=== PATIENT | male | born 1970 | race Caucasian/White ===

== ENCOUNTER 2016-11-13 07:16 | Day surgery (SDC) | payer OTHER ==
[2016-11-13 07:55] VITALS: BMI 26.6
[2016-11-13] MEDS ORDERED: Lidocaine Hydrochloride 5 ML INJ ONE (08:46)
[2016-11-13] MEDS ORDERED: Propofol 10 mg/ml Inj (20 ML) ONE (08:46)
--- NOTE | 2016-11-13 08:48 | CP.SDSHP ---
Same Day Surgery H & P - History Proposed Procedure: EGD Pre-Op Diagnosis: SEE NOTES - Previous Medical/Surgical History Neuro: Other Misc: Other Pain: 4.Moderate Pain - Allergies Allergies: Allergies No Known Allergies Allergy (Verified 11/13/16 07:53) - Physical Exam General Appearance: N Vital Signs: Vital Signs 11/13/16 11/13/16 07:56 08:36 Temperature 97.8 F 97.8 F Pulse Rate 65 65 Respiratory 19 19 Rate Blood Pressure 128/68 128/68 O2 Sat by Pulse 98 100 Oximetry Mental Status: Alert & Oriented x3 Neuro: WNL Heart: WNL Lungs: WNL GI: Other - {Optional Preform as Required} Breast: WNL Abdomen: Other Rectal: WNL Integument: WNL : WNL Ortho: Other ENT: WNL - Impression Pt. Evaluated Today:Candidate for Anesthesia & Procedure: Yes - Date & Time Time: 08:48 Short Stay Discharge - Short Stay Discharge Admitting Diagnosis/Reason for Visit: DYSPEPSIA Disposition: HOME/ ROUTINE
[2016-11-13] MEDS ORDERED: Belladonna-Phenobarbital PO ONE (09:00)
[2016-11-13 10:41] VITALS: TEMP 97.3
[2016-11-13 10:48] VITALS: BP 96/60; PULSE 73; RESP 14; O2SAT 97
== END 2016-11-13 10:00 | disposition home or self-care (01) ==
LOC: C.ENDO 07:16
PROVIDERS: ATTEND Specialist
DX: K20.9 Esophagitis, unspecified (principal); K44.9 Diaphragmatic hernia without obstruction or gangrene; K29.50 Unspecified chronic gastritis without bleeding
CPT/HCPCS: 43239; 88305; J2704

== ENCOUNTER 2016-12-21 03:20 | Emergency (ER) | payer OTHER ==
[2016-12-21 03:21] VITALS: BMI 26.6
[2016-12-21 03:34] VITALS: RESP 16
[2016-12-21] MEDS ORDERED: Sodium Chloride 0.9% 1,000 ML IV ONE (03:59)
[2016-12-21 04:12] LABS: BASO # 0.1 K/uL (0.0-0.2); BASO % 0.5 % (0.0-2.0); EOS # 0.1 K/uL (0.0-0.7); HEMATOCRIT 42.1 % (35.0-51.0); LYMPH # 2.8 K/uL (1.0-4.3); LYMPH % 24.6 % (20.0-40.0); MEAN CELL VOLUME 82.5 fL (80.0-94.0); MEAN CORPUSCULAR HEMOGLOBIN 27.1 pg (27.0-31.0); MEAN CORPUSCULAR HGB CONC 32.9 g/dL (33.0-37.0); MEAN PLATELET VOLUME 8.4 fL (7.2-11.7); MONO # 0.8 K/uL (0.0-0.8); MONO % 6.9 % (0.0-10.0); RED CELL DISTRIBUTION WIDTH 15.2 % (11.5-14.5); WHITE BLOOD COUNT 11.3 K/uL (4.8-10.8)
[2016-12-21 04:23] LABS: ALB/GLOB RATIO 1.1 (1.0-2.1); ALKALINE PHOSPHATASE 71 U/L (38-126); ALT/SGPT 31 U/L (21-72); AST/SGOT 25 U/L (17-59); BILIRUBIN,TOTAL 0.4 mg/dL (0.2-1.3); BLOOD UREA NITROGEN 12 mg/dL (9-20); CALCIUM 9.3 mg/dl (8.6-10.4); CARBON DIOXIDE 26 mmol/L (22-30); CHLORIDE 104 mmol/L (98-107); GFR AFRICAN-AMERICAN > 60; GLUCOSE,RANDOM 122 mg/dL (75-110); SODIUM 144 mmol/L (132-148); TOTAL PROTEIN 8.2 g/dL (6.3-8.3)
[2016-12-21] MEDS ORDERED: Morphine 4 MG/ML VIAL IV ONE ×2 (04:23→04:39)
[2016-12-21] MEDS ORDERED: Aluminum Hydroxide/Magnesium Hydroxide Susp (30 mL) ONE (04:57)
[2016-12-21] MEDS ORDERED: Aluminum Hydroxide/Magnesium Hydroxide Susp (30 mL) PO STA (04:57)
[2016-12-21] MEDS ORDERED: Iodixanol 320 MG/ML 100 ML BOTTLE IV ONE (05:13)
--- NOTE | 2016-12-21 05:39 | C.PDOC ---
History Of Present Illness 46 year old male with a Hx of gastritis/GERD on PO protonix, cerafate, and reglan who presents to the ER after experiencing intermittent epigastric pain since last night that worsened today. Pain is non radiating. Patient reports the pain is associated with several episodes of vomiting. Patient denies radiation of the pain, urinary symptoms, fever, or chest pain. Time Seen by Provider: 12/21/16 03:43 Chief Complaint (Nursing): Abdominal Pain History Per: Patient History/Exam Limitations: no limitations Onset/Duration Of Symptoms: Days, Intermittent Episodes Current Symptoms Are (Timing): Still Present Location Of Pain/Discomfort: Epigastric Radiation Of Pain To:: None Quality Of Discomfort: Unable To Describe Associated Symptoms: Vomiting. denies: Fever, Chest Pain, Urinary Symptoms Exacerbating Factors: None Alleviating Factors: None Recent travel outside of the [place]: No Past Medical History Reviewed: Historical Data, Nursing Documentation, Vital Signs Vital Signs: Last Vital Signs Temp 97.4 F L 12/21/16 03:27 Pulse 68 12/21/16 05:52 Resp 16 12/21/16 05:52 BP 123/79 12/21/16 05:52 Pulse Ox 96 12/21/16 06:24 - Medical History PMH: Gastritis, GERD Surgical History: Endoscopy - [facility] Procedures ESOPHAGOGASTRODUODENOSCOPY [EGD] W/CLOSED BIOPSY (11/07/14) Family History: States: Unknown Family Hx - Social History Hx Tobacco Use: No Hx Alcohol Use: No Hx Substance Use: No - Immunization History Hx Tetanus Toxoid Vaccination: Yes Hx Influenza Vaccination: Yes Hx Pneumococcal Vaccination: Yes Review Of Systems Constitutional: Negative for: Chills Cardiovascular: Negative for: Chest Pain Gastrointestinal: Positive for: Vomiting, Abdominal Pain Genitourinary: Negative for: Dysuria, Frequency, Hematuria Musculoskeletal: Negative for: Back Pain Physical Exam - Physical Exam Appears: Non-toxic Skin: Normal Color, Warm, Dry Head: Atraumatic, Normacephalic Eye(s): bilateral: Normal Inspection, PERRL Oral Mucosa: Moist Chest: Symmetrical Cardiovascular: Rhythm Regular Respiratory: Normal Breath Sounds, No Rales, No Rhonchi, No Wheezing Gastrointestinal/Abdominal: Soft, Tenderness (Epigastric), No Guarding, No Rebound, No Other (RUQ tenderness) Neurological/Psych: Oriented x3, Normal Speech, Normal Cognition ED Course And Treatment - Laboratory Results Result Diagrams: 12/21/16 04:06 12/21/16 04:06 O2 Sat by Pulse Oximetry: 96 (Room air) Pulse Ox Interpretation: Normal - CT Scan/US CT abd/pel Other Rad Studies (CT/US): Read By Radiologist, Radiology Report Reviewed CT/US Interpretation: FINDINGS: Lower thorax: There is minimal bibasilar atelectasis. ABDOMEN: Liver: There is a diffuse decrease in hepatic parenchymal density, consistent with fatty infiltration. There are no focal liver lesions present. Gallbladder and bile ducts: Gallbladder is distended measuring 10 x 3.7 CM with question of wall. thickening or pericholecystic fluid. It is difficult to exclude the possibility of cholecystitis. If indicated ,. this could be further evaluated with right upper quadrant sonogram or HIDA scan. No ductal dilation. Pancreas: The pancreas is normal. No ductal dilation. Spleen: The spleen is normal. Adrenals: The adrenal glands are normal. Kidneys and ureters: The kidneys are normal. No hydronephrosis. Stomach and bowel: Stomach is decompressed. Colonic constipation is present. There is no. evidence of intestinal obstruction. No mucosal thickening. Appendix: A normal appendix is identified. PELVIS: Bladder: Bladder is decompressed. Reproductive: The prostate gland and seminal vesicles are normal. ABDOMEN and PELVIS: Intraperitoneal space: There is no evidence of free intraperitoneal fluid. There is no free. intraperitoneal air. Bones/ joints: No acute fracture. No dislocation. Soft tissues: Unremarkable. Vasculature: The aorta is normal. No abdominal aortic aneurysm. Lymph nodes: There is no evidence of lymphadenopathy. IMPRESSION: Gallbladder is distended measuring 10 x 3.7 CM with question of wall thickening or pericholecystic fluid. It is difficult to exclude the possibility of cholecystitis. If indicated , this could be further evaluated with right upper quadrant sonogram or HIDA scan. Progress Note: CT abd/pelvis and urinalysis ordered. Maalox, pepcid, viscous lidocaine, morphine, zofran, and IV fluids administered. Pt reports very minimal improvement of pain- labs and abd CT reviewed- distended GBD. Recommend US . Dilaudid IV ordered and pt is pending RUQ US Disposition - Disposition Disposition: HOSPITALIZED Disposition Time: 07:09 Condition: STABLE Forms: Exit Games (Georgian) - Clinical Impression Clinical Impression: Epigastric pain - Scribe Statement The provider has reviewed the documentation as recorded by the Scribe Jay Garcia All medical record entries made by the Scribe were at my direction and personally dictated by me. I have reviewed the chart and agree that the record accurately reflects my personal performance of the history, physical exam, medical decision making, and the department course for this patient. I have also personally directed, reviewed, and agree with the discharge instructions and disposition. Physician Patient Turnover Patient Signed Over To: Naima Hinson Handoff Comments: Pending RUQ US and reevaluation for disposition
--- NOTE | 2016-12-21 05:49 | CT ---
EXAM: CT Abdomen and Pelvis With Intravenous Contrast CLINICAL HISTORY: 46 years old, male; Pain; Abdominal pain; Epigastric; Additional info: Abd pain , epigastric TECHNIQUE: Axial computed tomography images of the abdomen and pelvis with intravenous contrast. All CT scans at this facility use one or more dose reduction techniques, viz.: automated exposure control; ma/kV adjustment per patient size (including targeted exams where dose is matched to indication; i.e. head); or iterative reconstruction technique. Coronal and sagittal reformatted images were created and reviewed. CONTRAST: 100 mL of [id number] administered intravenously. COMPARISON: No relevant prior studies available. FINDINGS: Lower thorax: There is minimal bibasilar atelectasis. ABDOMEN: Liver: There is a diffuse decrease in hepatic parenchymal density, consistent with fatty infiltration. There are no focal liver lesions present. Gallbladder and bile ducts: Gallbladder is distended measuring 10 x 3.7 CM with question of wall thickening or pericholecystic fluid. It is difficult to exclude the possibility of cholecystitis. If indicated, this could be further evaluated with right upper quadrant sonogram or HIDA scan. No ductal dilation. Pancreas: The pancreas is normal. No ductal dilation. Spleen: The spleen is normal. Adrenals: The adrenal glands are normal. Kidneys and ureters: The kidneys are normal. No hydronephrosis. Stomach and bowel: Stomach is decompressed. Colonic constipation is present. There is no evidence of intestinal obstruction. No mucosal thickening. Appendix: A normal appendix is identified. PELVIS: Bladder: Bladder is decompressed. Reproductive: The prostate gland and seminal vesicles are normal. ABDOMEN and PELVIS: Intraperitoneal space: There is no evidence of free intraperitoneal fluid. There is no free intraperitoneal air. Bones/joints: No acute fracture. No dislocation. Soft tissues: Unremarkable. Vasculature: The aorta is normal. No abdominal aortic aneurysm. Lymph nodes: There is no evidence of lymphadenopathy. IMPRESSION: Gallbladder is distended measuring 10 x 3.7 CM with question of wall thickening or pericholecystic fluid. It is difficult to exclude the possibility of cholecystitis. If indicated, this could be further evaluated with right upper quadrant sonogram or HIDA scan.
--- NOTE | 2016-12-21 09:47 | US ---
HISTORY: epigastric pain, distended GBD on Abd CT COMPARISON: Kimberly a is made to the previous CT of the abdomen and pelvis done on the same date. TECHNIQUE: Sonographic evaluation of the right upper quadrant of the abdomen. FINDINGS: LIVER: Measures 13.7 cm in length. Mild increased echogenicity of the liver parenchyma. No mass. No intrahepatic bile duct dilatation. GALLBLADDER: The gallbladder is distended contains gallstone. With there is slight gallbladder wall thickening measures 3.3 millimeter. No evidence of pericholecystic fluid. COMMON BILE DUCT: Measures 4.8 mm. No stones. No dilatation. PANCREAS: Unremarkable as visualized. No mass. No ductal dilatation. RIGHT KIDNEY: Measures 10.1 x 4.5 x 4.8 cm in length. Normal echogenicity. No calculus, mass, or hydronephrosis. AORTA: No aneurysmal dilatation. IVC: Unremarkable. OTHER FINDINGS: None . IMPRESSION: Mild hepatic steatosis. Distended gallbladder contains gallstone and demonstrates slight wall thickening. No evidence of pericholecystic fluid. The possibility of acute cholecystitis is less likely. If clinically warranted further assessment by hepatobiliary scan may be obtained. No evidence of biliary obstruction.
[2016-12-21 10:35] LABS: RBC URINE < 1 /hpf (0-3); URINE BILIRUBIN NEGATIVE (NEGATIVE); URINE BLOOD NEGATIVE (NEGATIVE); URINE COLOR Straw (YELLOW); URINE GLUCOSE (UA) NORMAL (Normal); URINE KETONE NEGATIVE (NEGATIVE); URINE LEUKOCYTE ESTERASE NEG Leu/uL (Negative); URINE PROTEIN NEGATIVE (NEGATIVE); URINE UROBILINOGEN NORMAL mg/dL (0.2-1.0)
[2016-12-21 11:04] VITALS: BP 113/69; PULSE 67; TEMP 97.7; O2SAT 96
== END 2016-12-21 11:58 | disposition home or self-care (01) ==
LOC: C.ER 03:20
DX: K80.50 Calculus of bile duct without cholangitis or cholecystitis without obstruction (principal)
CPT/HCPCS: 74177; 76705; 80053; 81001; 83690; 85025; 96361; 96374; 96375; 99285; J1170; J2270; J2405; J7040; Q9967